=== PATIENT | female | born 1965 | race Caucasian/White ===

== ENCOUNTER → 2020-01-30 08:11 | Outpatient (BNVA) | payer OTHER, SELFPAY | PROVIDERS: PCP Internal Medicine; Referring Provider Internal Medicine; Visit Provider Physician Assistant | DX: Z76.89 Persons encountering health services in other specified circumstances (principal) ==

== ENCOUNTER → 2020-02-17 09:20 | Outpatient (BNVA) | payer OTHER, SELFPAY | PROVIDERS: PCP Internal Medicine; Visit Provider Physician Assistant | DX: Z76.89 Persons encountering health services in other specified circumstances (principal) ==

== ENCOUNTER 2020-02-20 10:06 | Outpatient (REF) | payer OTHER, SELFPAY | END 2020-02-20 10:07 | disposition home or self-care (01) | LOC: HO.LAB 10:06 | PROVIDERS: Visit Provider Internal Medicine | DX: Z20.828 Contact with and (suspected) exposure to other viral communicable diseases (principal) | CPT/HCPCS: C9803; U0003 ==

== ENCOUNTER → 2020-04-19 08:03 | Outpatient (BNVA) | payer OTHER, SELFPAY | PROVIDERS: PCP Internal Medicine; Visit Provider Surgery ==

== ENCOUNTER 2020-04-21 06:59 | Outpatient (REF) | payer OTHER, SELFPAY ==
--- NOTE | 2020-04-21 07:07 | ECG_ITS ---
Test Reason : PRE OP Blood Pressure : / mmHG Vent. Rate : 064 BPM Atrial Rate : 064 BPM P-R Int : 126 ms QRS Dur : 090 ms QT Int : 406 ms P-R-T Axes : 050 083 050 degrees QTc Int : 418 ms Normal sinus rhythm Normal ECG When compared with ECG of 24-APR-2018 08:56, T wave inversion no longer evident in Inferior leads Referred By: Sumeet Og Electronically Signed By:Raymond New
[2020-04-21 07:46] LABS: MANUAL DIFF FLAG NO
[2020-04-21 07:49] LABS: Basophils Absolute Auto 0.1 X10*3/uL (0.0-0.2); Eosinophils Absolute Auto 0.1 X10*3/uL (0.0-0.4); Eosinophils Percent Auto 2.8 % (0-4); Hematocrit 41.1 % (37-47); Hemoglobin 13.4 g/dl (12.0-16.0); Imm Gran Abs Auto 0.01 X10*3/uL (0.00-0.03); Imm Gran Pct Auto 0.2 % (0.0-0.4); Lymphocytes Absolute Auto 2.3 X10*3/uL (1.2-4.9); Mean Corpuscular HGB Conc 32.6 g/dl (31.0-35.0); Mean Corpuscular Hemoglobin 29.4 pg (27.0-33.0); Mean Corpuscular Volume 90.1 fL (80-98); Mean Platelet Volume 10.8 fL (9.4-12.3); Monocytes Absolute Auto 0.4 X10*3/uL (0.1-1.2); Monocytes Percent Auto 7.5 % (2-11); Neutrophils Absolute Auto 2.1 X10*3/uL (2.0-8.3); Neutrophils Percent Auto 41.5 % (45-73); Platelet Count 226 X10*3/uL (160-400); Red Blood Count 4.56 X10*6/uL (4.20-5.50); Red Cell Distribution Width 12.5 % (11.0-16.0)
[2020-04-21 08:15] LABS: Prothrombin Time 12.2 SEC (10.8-13.0)
[2020-04-21 08:17] LABS: Partial Thromboplastin Time 35.4 SEC (24.1-38.0)
== END 2020-04-21 07:00 | disposition home or self-care (01) ==
LOC: HO.LAB 06:59
PROVIDERS: PCP Internal Medicine; Visit Provider Surgery
DX: Z01.818 Encounter for other preprocedural examination (principal); K90.9 Intestinal malabsorption, unspecified
CPT/HCPCS: 36415; 80053; 85025; 85610; 85730; 93005

== ENCOUNTER 2020-04-29 06:17 | Inpatient (IN) | payer OTHER, SELFPAY ==
[2020-04-16 09:39] VITALS: BMI 23.0
--- NOTE | 2020-04-28 09:40 | HO.ANESPROP2 ---
Documented by User: Yuliana Oconnell 04/28/20 09:45 HPI - Anesthesia Eval Consult details Narrative: 54yo F for Panniculectomy s/p gastric sleeve 07/12 *plavix d/t h/o CVA 2008 [facility] Past Medical History Medical History (Updated 04/29/20 @ 07:18 by Sabina Grande) Arthritis CVA (cerebral vascular accident) Elevated cholesterol History of anxiety Lab test negative for COVID-19 virus On anticoagulant therapy Taking a statin medication Thyroid disease Family History Family History Mother History of aneurysm of heart Father No problems noted. Brother No problems noted. Sister History of hypothyroidism Son No problems noted. Son No problems noted. Daughter History of hypothyroidism Surgical History Surgical History History of esophagogastroduodenoscopy (EGD) History of sleeve gastrectomy Hx laparoscopic cholecystectomy Hx of appendectomy Hx of section Hx of section Hx of section Hx of hysterectomy Hx of right knee surgery Hx of tonsillectomy Hx of wisdom tooth extraction Social History Social History Are you a primary day care provider to a significant other at home: No Do you presently have visiting nurse or other home services: No Alcohol intake: never Smoking Status: Never smoker Use of substances other than those prescribed or required for medical reasons: No Have you been hit, kicked, punched, or otherwise hurt by someone within the past year? If so, by whom?: No Advance Directives: No Advance Directives Information Provided: No Recently lost weight without trying: No Meds Allergies Allergy/AdvReac Type Severity Reaction Status Date / Time strawberry [STRAWBERRY] Allergy Intermediate HIVES Verified 04/19/20 10:02 Home Medications Medication Instructions Recorded Confirmed Type clopidogrel 75 mg tablet 75 mg PO DAILY 01/30/20 04/29/20 History levothyroxine 75 mcg tablet 75 mcg PO DAILY 01/30/20 04/29/20 History simvastatin 10 mg tablet 10 mg PO BEDTIME 01/30/20 04/29/20 History cephalexin 500 mg PO BID 04/29/20 04/29/20 History estradiol 1 tab VAGINAL 2XW 04/29/20 04/29/20 History Exam Exam Date and Time: April 28, 2020 0940 Height,Weight and Vital Signs: Height 5 ft 6.5 in Weight 65.771 kg Pertinent Lab Results Pertinent Lab Results: Laboratory Tests 04/21/20 07:45 Blood Type B Negative Antibody Screen NEGATIVE Laboratory Tests 04/21/20 04/21/20 06:45 06:45 WBC 5.0 Hgb 13.4 Hct 41.1 Plt Count 226 PT 12.2 INR 1.0 APTT 35.4 Narrative Narrative: EKG 04/21/20 Normal sinus rhythm Normal ECG When compared with ECG of 24-APR-2018 08:56, T wave inversion no longer evident in Inferior leads Assessment and Plan Assessment Anesthesia Assessment: Chart Reviewed Documented by User: Sabina Grande 04/29/20 07:21 [facility] Past Medical History Medical History (Updated 04/29/20 @ 07:18 by Sabina Grande) Arthritis CVA (cerebral vascular accident) Elevated cholesterol History of anxiety Lab test negative for COVID-19 virus On anticoagulant therapy Taking a statin medication Thyroid disease Family History Family History Mother History of aneurysm of heart Father No problems noted. Brother No problems noted. Sister History of hypothyroidism Son No problems noted. Son No problems noted. Daughter History of hypothyroidism Family history of problems with anesthesia: No Surgical History Surgical History History of esophagogastroduodenoscopy (EGD) History of sleeve gastrectomy Hx laparoscopic cholecystectomy Hx of appendectomy Hx of section Hx of section Hx of section Hx of hysterectomy Hx of right knee surgery Hx of tonsillectomy Hx of wisdom tooth extraction History of Problems with Anesthesia: No Social History Social History Are you a primary day care provider to a significant other at home: No Do you presently have visiting nurse or other home services: No Alcohol intake: never Smoking Status: Never smoker Use of substances other than those prescribed or required for medical reasons: No Have you been hit, kicked, punched, or otherwise hurt by someone within the past year? If so, by whom?: No Advance Directives: No Advance Directives Information Provided: No Recently lost weight without trying: No Meds Allergies Allergy/AdvReac Type Severity Reaction Status Date / Time strawberry [STRAWBERRY] Allergy Intermediate HIVES Verified 04/19/20 10:02 Home Medications Medication Instructions Recorded Confirmed Type clopidogrel 75 mg tablet 75 mg PO DAILY 01/30/20 04/29/20 History levothyroxine 75 mcg tablet 75 mcg PO DAILY 01/30/20 04/29/20 History simvastatin 10 mg tablet 10 mg PO BEDTIME 01/30/20 04/29/20 History cephalexin 500 mg PO BID 04/29/20 04/29/20 History estradiol 1 tab VAGINAL 2XW 04/29/20 04/29/20 History Exam Height,Weight and Vital Signs: Vital Signs Pulse Resp BP Pulse Ox 04/29/20 06:26 82 18 108/61 99 Pertinent Lab Results Pertinent Lab Results: Lab Results 04/21/20 04/29/20 04/29/20 Range/Units 07:45 06:20 06:29 Sodium 141 (135-145) mmol/L Potassium 3.8 (3.3-5.1) mmol/L Chloride 102 (96-108) mmol/L Carbon Dioxide 30 H (22-29) mmol/L Anion Gap 13 (12-20) BUN 14 (9-16) mg/dL Creatinine 0.75 (0.5-1.4) mg/dL Estim Creat Clear Calc 78.4 Estimated GFR > 60 Fasting Glucose 96 (60-99) mg/dL Calcium 9.5 (8.4-10.2) mg/dL COVID-19 (JON) Negative (Negative) COVID-19 Clin Com See Note Blood Type B Negative Antibody Screen NEGATIVE Airway Mallampati Class: II TM Dist: >3cm Neck ROM: Full Loose/Missing/Broken Teeth: No Heart: RRR Lungs: CTAB Assessment and Plan Assessment Anesthesia Assessment: Anesthesia Plan Discussed and Chart Reviewed Final Anesthetic Review NPO: Yes ASA Class: III Final Preanesthetic Review: No Changes in Pt Med Stat, Meds/Allgs Chart Reviewed, Consent Obtained/Reviewed and Anes Risks/Benef Reviewed Patient Risk: Intermediate Procedure Risk: Intermediate Assessment/Block/Sedation in SS: Assess/Block/Sedation-SS Anesthetic Plan Anesthetic Plan: GA Disposition: Standard PACU
--- NOTE | 2020-04-28 22:32 | MHC.SHP ---
Pre-Procedural Eval Section A The patient is an INPATIENT: No The History & Physical has been completed within 30 days and I have reviewed it.: Yes Section B Chief Complaint: panniculitis Details of Present Illness: Panniculitis Relevant Family History (Specify if Yes): No Relevant Social History: None Present Medications: see Short Stay Collaborative assessment Medical History: No relevant PMH History of Previous Operations: Relevant previous surgery/procedure and date(s) (sleeve gastrectomy) Allergies: Allergies Allergy/AdvReac Type Severity Reaction Status Date / Time strawberry [STRAWBERRY] Allergy Intermediate HIVES Verified 04/19/20 10:02 Review of Systems Sugical H&P ROS: Negative: Constitution, Cardiovascular, Respiratory, Neurological, Psychiatric, Hem-Onc, Allergic/Immunologic, Gastrointestinal, Genitourinary, Musculoskeletal, Integumentary, Endocrine and Eyes/Ears/Nose/Throat Exam Surgical H&P Exam: Normal: HEENT, Normal: Heart, Normal: Lungs, Normal: Extremities, Normal: Abdomen, Normal: Skin and Normal: Neurological Plan Diagnosis/Plan: Unchanged I have reviewed the history and physical and performed a pertinent physical examination on my patient. No changes have occurred unless specified.
[2020-04-29] VITALS (11 sets, daily range): BP systolic 92–134; BP diastolic 48–64; PULSE 65–106; RESP 15–18; TEMP 35.8–37; O2SAT 96–100
[2020-04-29 06:44] LABS: COVID-19 Test Negative (Negative)
[2020-04-29 07:04] LABS: Anion Gap 13 (12-20); Blood Urea Nitrogen 14 mg/dL (9-16); Calcium 9.5 mg/dL (8.4-10.2); Carbon Dioxide 30 mmol/L (22-29); Chloride 102 mmol/L (96-108); Creatinine Clr Calc Pharmacy 78.4; Estimated Glomerular Filt Rate > 60; Glucose Fasting 96 mg/dL (60-99); Potassium 3.8 mmol/L (3.3-5.1); Sodium 141 mmol/L (135-145)
--- NOTE | 2020-04-29 11:13 | P.DS_ITS ---
DS: Providers Provider Date of Service: 05/03/20 Date of admission: 04/29/20 06:17 Primary care physician: Nasra Stone MD DS: Medications Discharge Medications Home Medications: Home Medications Medication Instructions Recorded Confirmed clopidogrel 75 mg tablet 75 mg PO DAILY 01/30/20 04/29/20 levothyroxine 75 mcg tablet 75 mcg PO DAILY 01/30/20 04/29/20 simvastatin 10 mg tablet 10 mg PO BEDTIME 01/30/20 04/29/20 cephalexin 500 mg PO BID 04/29/20 04/29/20 estradiol 1 tab VAGINAL 2XW 04/29/20 04/29/20 Previous Rx's Medication Instructions Recorded ondansetron HCl 4 mg tablet 4 mg PO Q6H PRN #30 tab 04/19/20 DS: Summary Time Spent with Patient Time attestation: DISCHARGE SUMMARY ADMITTING DIAGNOSIS: panniculitis, s/p lap sleeve gastrectomy, hx CVA, hyperlipidemia, hypothyroidism, anxiety and arthritis DISCHARGE DIAGNOSIS: The same. PAST SURGICAL HISTORY: Lap sleeve gastrectomy, section x 3, lap jose, open appy, hysterectomy and R knee surgery PROCEDURE: Panniculectomy. HISTORY OF PRESENT ILLNESS: The patient is a 54 year-old woman with a BMI of 23.1 kg/m2 and associated co- morbidities as described previous. The patient had a laparoscopic sleeve gastrectomy 2017 and has lost a total of 103.6 lbs, or 42% of her initial weight and her BMI reduced to 23.1 kg/m2. As a result of the massive weight loss she developed a large abdominal pannus and persistent panniculitis recalcitrant to medical treatment. The patient was electively scheduled for panniculectomy. Risks and complications of the surgery were discussed with the patient in advance, particularly the possibility of , pulmonary embolism, skin necrosis, loss of umbilicus, flap necrosis, wound dehiscence, flap asymmetry, bleeding requiring transfusion. The patient understood all the risks and was in agreement with the surgical plan. On postoperative day #1 the patient was started on Phase 3 bariatric diet. The Pham was discontinued. She was allowed to ambulate and she had no dizziness. During the first day, the patient did fairly well, having some incisional pain, but able to ambulate adequately and to tolerate liquids well. All dressings were taken down and the all incisions were inspected. There was no evidence of infection or bleeding or significant discharge. All flaps and umbilicus were viable and there was no dehiscence. DAY drains had minimal output with s erosanguinous fluid. Since the patient is doing well, we decided that the patient was ready to be discharged. The patient was given instructions to follow-up with me next week and to call my office for any fever over 101, persistent abdominal pain, nausea, vomiting, and symptoms of DVT such as calf tenderness, or leg swelling, or pulmonary embolism such as chest pain or shortness of breath. The patient was also instructed to drink 40-60 ounces of liquids per day using the 1-ounce cups and start on 3 Pure protein shakes per day. The patient was given prescription for Tylenol for pain, Zofran prn for nausea and a 10-day course of Keflex twice a day. The patient was encouraged to ambulate and use the incentive spirometer. However it was strongly recommended to do so with assistance and avoid any abdominal straining for at least one month. The patient was allowed only to do sponge baths, and encouraged to use the recliner at home and not the bed. All of these instructions were given to the patient personally. All questions were answered and the patient understood all instructions. The instructions were given to the patient in print as well. Total time spent providing and/or coordinating discharge services:20 minutes Discharge coordination time: Greater than 30 minutes Physical Exam Vital Signs: Vital Signs: Last Vital Signs Temp 97.1 F 04/29/20 11:05 Pulse 105 H 04/29/20 11:05 Resp 15 04/29/20 11:05 BP 134/63 04/29/20 11:05 Pulse Ox 100 04/29/20 11:05 Body Mass Index 23.0 DS: Data Data Completed and Pending Pending studies at discharge: Pending at discharge 04/29/20 09:49 Surgical [PTH] Routine Labs on day of discharge: Laboratory Tests 04/21/20 04/29/20 04/29/20 07:45 06:20 06:29 Sodium 141 Potassium 3.8 Chloride 102 Carbon Dioxide 30 H Anion Gap 13 BUN 14 Creatinine 0.75 Estim Creat Clear Calc 78.4 Estimated GFR > 60 Fasting Glucose 96 Calcium 9.5 COVID-19 (JON) Negative COVID-19 Clin Com See Note Blood Type B Negative Antibody Screen NEGATIVE Discharge Plan Discharge Anticipated Discharge Date/Time: 04/30/20 00:10 Patient Disposition: Home Health Service Referrals: [facility] [Other] (PATIENT IS DISCHARGED HOME WITH [facility] FOR INCISION AND DRAIN MANAGEMENT) Nasra Stone MD [Primary Care Provider] - Discharge Medications: Continued cephalexin 500 mg Capsule 500 mg PO BID RF: 0 ondansetron HCl [Zofran] 4 mg tablet 4 mg PO Q6H PRN (Reason: nausea and vomiting) Qty: 30 RF: 0 simvastatin 10 mg tablet 10 mg PO BEDTIME RF: 0 levothyroxine 75 mcg tablet 75 mcg PO DAILY RF: 0 Held estradiol 10 mcg tablet 1 tab vaginal 2XW RF: 0 Hold Instructions: Discuss with Dr Anna when you can restart clopidogrel 75 mg tablet 75 mg PO DAILY RF: 0 Hold Instructions: Do not restart until recommended by Dr Og Discharge Orders: Discharge Order (Routine); Ordered 04/30/20 Ordered By: Sumeet Og Diet: other Activity on Discharge: Rest with bed elevated Stand Alone Forms: Patient Portal Discharge page Activity Restrictions/Additional Instructions: 1) Record drain output for all 24 hour periods on drain output sheet. Bring sheet at the next office visit 2) Start Keflex antibiotic 3) No showers. Only sponge baths 4) Avoid any tension on the abdomen and always have help getting up. Use your arms to push off from chair/bed. 5) Take 1 tab of Colace and one tablespoon of Metamucil daily 6) Diet: 3 protein shakes, or 2 shakes and one meal (2oz meat and 2oz salad) 7) Wear binder at all times 8) Change dressings daily and send pictures to Dr. Og. Replace loose steri-strips and xeroform gauze along the incisions and umbilicus. 9) Supplies needed: ABD pads, 4x4 dressings, xeroform gauze, 1/2'' steri-strips, paper tape. You will need to use several of the above supplies on a daily basis. Care Plan Goals: resoltuion of panniculitis Health Concerns: panniculitis Plan of Treatment: see discharge instructions Discharge Date/Time: 04/30/20 14:20
[2020-04-29] MEDS: Lactated Ringers 1,000 ML 125 ML IVCONT ×2 (12:31→20:23)
[2020-04-29] MEDS: ondansetron HCL 4 MG/2 ML VIAL IVPUSH ×2 (14:07→20:23)
[2020-04-29] MEDS: ceFAZolin Sodium/Dextrose,Iso 2 GM/50 ML PIGGYBACK IV (14:10)
[2020-04-29] MEDS: 0.9 % Sodium Chloride Flush 3 ML SYRINGE IVFLUSH (20:23)
[2020-04-29] MEDS: 0.9 % Sodium Chloride 500 ML 999 ML IV (20:24)
--- NOTE | 2020-04-29 20:58 | P.PNGS_ITS ---
Subjective Subjective Date of Service: 04/30/20 Interval history: Patient has mild incisional pain. Was able to use the incentive spirometer. Dressing were changed.There was no evidence of ischemia in the flaps or umbilicus. DAY with serosanguinous fluid. Physical Exam Vital Signs: Vital Signs: Last Vital Signs Temp 97 F 04/29/20 19:06 Pulse 65 04/29/20 19:06 Resp 18 04/29/20 19:06 BP 92/48 L 04/29/20 19:46 Pulse Ox 97 04/29/20 19:06 Body Mass Index 23.0 GI: Inspection: Yes normal to inspection and Yes incision (clean, dry, intact. No ischemia) Extrem: Right lower extremity: normal to inspection (no calf tenderness) Left lower extremity: normal to inspection (no calf tenderness) Progress Note: A&P Assessment and plan (1) Panniculitis: Status: Acute (2) Intestinal malabsorption: Status: Acute (3) S/P panniculectomy: Status: Acute Assessment and Plan: 54 year old female was admitted 04/29/2020 with panniculitis. Problem 1: s/p panniculectomy with umbilical transposition and bilateral subc utaneous fat flaps Status: Doing well Plan: Check am labs, If OK, will continue phase 1 bariatric diet and discharge later today. D/C Pham and ambulate. Fall Risk Details Current Medications: Current Medications Generic Name Dose Route Start Last Admin Trade Name Freq PRN Reason Stop Dose Admin Hydromorphone HCl 0.25 mg 04/29/20 12:07 Hydromorphone Hcl 0.5 Mg/0.5 Ml Syringe IVPUSH Q4H PRN Pain, Moderate (Pain Scale 4-6 Lactated Ringer's 1,000 mls @ 125 mls/hr 04/29/20 12:07 04/29/20 20:23 Lr IVCONT 125 mls/hr .Q8H ANNAMARIE Administration Acetaminophen 1,000 mg in 100 mls @ 16.7 mls/hr 04/29/20 12:07 04/29/20 18:13 Ofirmev IV 16.7 mls/hr .Q6H ANNAMARIE Administration Levothyroxine Sodium 75 mcg 04/30/20 09:00 Levothyroxine Sodium 75 Mcg Tablet PO DAILY ANNAMARIE Ondansetron HCl 4 mg 04/29/20 12:07 04/29/20 20:23 Ondansetron Hcl 4 Mg/2 Ml Vial IVPUSH 4 mg Q8H ANNAMARIE Administration Sodium Chloride 3 ml 04/29/20 16:00 04/29/20 20:23 0.9 % Sodium Chloride Flush 3 Ml Syringe IVFLUSH 3 ml QSHIFT ANNAMARIE Administration Time Spent With Patient Time: Total time spent is greater than 50% in coordination of care (as documented) at patient's floor/unit and/or counseling patient: Time with patient: less than 15 minutes
--- NOTE | 2020-04-29 21:02 | P.BOP_ITS ---
Brief Operative Note Date of Service: 04/29/20 Pre-op diagnosis: Panniculitis Post-op diagnosis: same Procedure: PROCEDURE: Panniculectomy with umbilical transposition and bilateral subcutaneous flaps INDICATION: This a 54 year old female who underwent laparoscopic sleeve gastrectomy on 06/29/2018. She had an excellent result achieving a BMI of 23.3 kg/m2 with a total weight loss of 103.6lbs, or 42.5% of her TBWL. As a result, she has developed panniculitis which has not resolved despite continuous use of clotrimazole ointment. On exam she has extreme skin laxity due to massive weight loss and age with the abdominal pannus completely hiding the genitalia. Panniculectomy was recommended. We discussed the two options for the panniculectomy of using a combined vertical and horizontal incisions or just a horizontal (bikini) incision. It was my recommendation to do only horizontal incision based on her body habitus and skin laxity. The patient agreed with this. Risks and complications were discussed with the patient including bleedin g, infection, umbilical loss, flap necrosis, asymmetry, dehiscence, seroma, VTE. The patient understood the risks and was in agreement to proceed with surgery. PROCEDURE: The incisions were appropriately marked at the preop area with the patient standing and laying down. After induction of general anesthesia a Pham catheter and pneumatic compression devices were placed. The patient was prepped and draped in the usual sterile manner and the incisions were marked again and confirmed. The skin was infiltrated with lidocaine and epinephrine. The #10 blade scalpel was used for the large incisions and the #15 blade scalpel for the umbilicus. Cautery was used to divide the subcutaneous tissues until the fascia was identified. Then I used the Thunderbeat (Olympus) to separate the pannus from t he fascia. The inferior incision was made initially and I mobilized the flap for a several centimeters cephalad to the umbilicus. The umbilicus was incised circumferentially and detached from the surrounding tissues all the way to the fascia while its stalk was preserved. With the patient in reflex position I confirmed that the skin flaps were appropriate and would allow for the tissues to come together with reasonable tension. At that point a horizontal incision was made 4 cm above the umbilicus. #10 blade was used for the skin, cautery for the dermis and the Thunderbeat for the remaining tissues. A bilateral subcutaneous fat flap was raised from the upper incision in order to fill the space under the skin and support the closure of the two skin flaps. In addition the inferior flap was mobilized caudally for a few centimeters to create a space for the omental flap as well as relieve tension from the closure. A circumferential incision was made at the area where the umbilicus would be re- implanted. The umbilicus was appropriately oriented and was delivered through the defect and was secured in place with a Raymond. No bleeding was noted anywhere. One DAY drain was placed from the left corner of the horizontal incision across the wound and was secured in place with a silk suture. The subcutaneous fat flap was secured under the inferior flap with several interrupted 3.0 Monocryl sutures. The two flaps were brought together and were attached at the midline of the horizontal incision with a #3.0 Monocryl suture. At that point the umbilicus was properly oriented and was re-approximated to the skin with 8 interrupted 3.0 Monocryl sutures. In a similar fashion the skin flaps were re-approximated with multiple 3.0 Monocryl sutures. The skin was closed in all incisions and umbilicus with 4.0 Monocryl sutures. Steri-strips, xeroform gauzes and gauzes were used to cover the incisions. An abdominal binder was also placed. The was awaken and was transferred to the recover room in a stable condition. I was present and performed the entire procedure. Ms. Lentz was the waiter/waitress first class. Fernando Og MD, PhD, FACS Surgeon: Sumeet Og MD Surgeon: Sumeet Og MD Anesthesia: GETA and local Design Painter: Sol Lentz Estimated blood loss (mL): 10 IV fluids (mL): 1,700 Urine output (mL): 150 Pathology: other (abdominal pannus) Condition: stable
--- NOTE | 2020-04-30 00:06 | PC.NURSE ---
pt's bp at 1945 was 92/48. [employer] message sent to VENUS Marcum. 500 cc NS bolus ordered and administered. pt's bp at 2300 was 95/48. spoke with Dr. Og around 2200 and reported pt's low bp's and he said that this was normal for her. [employer] message sent to Sol Lentz to report 2300 bp and told her that I spoke with Dr. Og about her bps.
[2020-04-30 03:13] LABS: MANUAL DIFF FLAG NO
[2020-04-30 03:19] LABS: Basophils Percent Auto 0.3 % (0-2); Eosinophils Percent Auto 0.2 % (0-4); Hematocrit 32.7 % (37-47); Hemoglobin 10.7 g/dl (12.0-16.0); Imm Gran Abs Auto 0.03 X10*3/uL (0.00-0.03); Imm Gran Pct Auto 0.3 % (0.0-0.4); Lymphocytes Absolute Auto 2.2 X10*3/uL (1.2-4.9); Mean Corpuscular HGB Conc 32.7 g/dl (31.0-35.0); Mean Corpuscular Hemoglobin 29.5 pg (27.0-33.0); Mean Corpuscular Volume 90.1 fL (80-98); Mean Platelet Volume 10.9 fL (9.4-12.3); Monocytes Percent Auto 9.8 % (2-11); Neutrophils Absolute Auto 6.8 X10*3/uL (2.0-8.3); Neutrophils Percent Auto 67.4 % (45-73); Platelet Count 176 X10*3/uL (160-400); Red Blood Count 3.63 X10*6/uL (4.20-5.50); Red Cell Distribution Width 12.7 % (11.0-16.0); White Blood Count 10.1 X10*3/uL (4.8-10.8)
[2020-04-30 03:48] LABS: Anion Gap 10 (12-20); Blood Urea Nitrogen 9 mg/dL (9-16); Calcium 8.3 mg/dL (8.4-10.2); Carbon Dioxide 29 mmol/L (22-29); Chloride 105 mmol/L (96-108); Creatinine Clr Calc Pharmacy 96.4; Estimated Glomerular Filt Rate > 60; Glucose Random 95 mg/dL (60-115); Potassium 4.1 mmol/L (3.3-5.1); Sodium 140 mmol/L (135-145)
[2020-04-30 04:00] VITALS: BP 90/56; PULSE 56; RESP 16; TEMP 36.1; O2SAT 99
[2020-04-30] MEDS: Lactated Ringers 1,000 ML 125 ML IVCONT (04:36)
[2020-04-30] MEDS: ondansetron HCL 4 MG/2 ML VIAL IVPUSH (04:37)
--- NOTE | 2020-04-30 04:44 | PC.NURSE ---
pt's bp at 0400 was 90/56 manually, all other vitals stable. [employer] message sent to VENUS Marcum. Sol aware, no new orders.
[2020-04-30 08:00] VITALS: BP 97/52; PULSE 62; RESP 16; TEMP 36.2; O2SAT 99
--- NOTE | 2020-04-30 09:03 | MHC.CM.PN ---
PATIENT LIVES WITH HER SPOUSE. SHE IS FULLY INDEPENDENT AND USES NO DME OR SERVICES. SHE IS AWARE OF THE NEED FOR [facility], AND [facility]OSES [facility] REFERRAL PLACED. IF [place] IS UNABLE TO OFFER, SHE CHOOSES [facility] REFERR[facility]. PATIENT IS DISCHARGED HOME TODAY AND SP[facility] WILL TRANSPORT.
--- NOTE | 2020-04-30 09:13 | MHC.CM.PN ---
[facility] AT THIS TIME. REFERRAL PLACED TO [facility].
--- NOTE | 2020-04-30 09:19 | HO.POSTANES ---
Post Anesthesia Evaluation Post Anesthesia Evaluation Vital Signs: Vital Signs Temp Pulse Resp BP Pulse Ox 04/30/20 08:00 97.1 F 62 16 97/52 L 99 04/30/20 04:00 96.9 F 56 16 90/56 L 99 04/29/20 22:56 96.4 F L 68 16 95/48 L 97 Anesthesia: General Endotracheal-GETA Mental Status: Awake Pain Control: Satisfactory Nausea/Vomiting: None Hydration: Adequate Anesthesia-Related Issues: No Anes. Related Issues
[2020-04-30 09:51] VITALS: O2SAT 98
--- NOTE | 2020-04-30 10:41 | MHC.CM.PN ---
[facility] IS OFFERING SERVICES FOR I&D MANAGEMENT.
[2020-04-30 10:58] VITALS: BP 101/55; PULSE 59; RESP 18; TEMP 37.1; O2SAT 99
--- NOTE | 2020-04-30 11:44 | PC.NURSE ---
PT C[place] REMOVED AT 0815. PT HAS VOIDED TWICE IN BR WITHOUT DIFFICULTY. DENIES PAIN, DENIES DIZZINESS WHEN STANDNG. DRESSING TO LOWER ABDOMEN D/I. AMBULATED IN [place]. TOLERATING PHASE 3 DIET AT THIS TIME
== END 2020-04-30 14:20 | disposition home health service (06) | DRG 571 ==
LOC: HO.SSSA 11:12 → HO.S3 11:48
PROVIDERS: Nurse Practitioner; Physician Assistant; Admitting Provider Surgery; PCP Internal Medicine; Visit Provider Surgery
PROC: 0JB80ZZ Excision of Abdomen Subcutaneous Tissue and Fascia, Open Approach (ICD-10-PCS; CPT 15830; principal; 2020-04-29 07:30)
DX: M79.3 Panniculitis, unspecified (principal); K90.9 Intestinal malabsorption, unspecified; Z20.822 Contact with and (suspected) exposure to COVID-19; Z79.02 Long term (current) use of antithrombotics/antiplatelets; Z79.890 Hormone replacement therapy; Z79.899 Other long term (current) drug therapy
CPT/HCPCS: 36415; 80048; 85025; 86850; 86900; 86901; 87635; 88304; 99024; C1758; J0131; J0690; J1100; J1170; J1885; J2250; J2405; J3010

== ENCOUNTER → 2020-05-07 08:38 | Outpatient (BNVA) | payer OTHER, SELFPAY | PROVIDERS: PCP Internal Medicine; Visit Provider Physician Assistant ==

== ENCOUNTER → 2020-07-21 08:04 | Outpatient (BNVA) | payer OTHER, SELFPAY | PROVIDERS: PCP Internal Medicine; Referring Provider Internal Medicine; Visit Provider Physician Assistant ==

== ENCOUNTER 2020-07-27 11:03 | Outpatient (REF) | payer OTHER, SELFPAY ==
[2020-07-27 11:53] LABS: MANUAL DIFF FLAG NO
[2020-07-27 12:03] LABS: Basophils Absolute Auto 0.1 X10*3/uL (0.0-0.2); Basophils Percent Auto 0.9 % (0-2); Eosinophils Absolute Auto 0.1 X10*3/uL (0.0-0.4); Eosinophils Percent Auto 2.1 % (0-4); Hematocrit 40.6 % (37-47); Hemoglobin 12.9 g/dl (12.0-16.0); Imm Gran Abs Auto 0.01 X10*3/uL (0.00-0.03); Imm Gran Pct Auto 0.2 % (0.0-0.4); Lymphocytes Absolute Auto 2.6 X10*3/uL (1.2-4.9); Lymphocytes Percent Auto 43.9 % (20-40); Mean Corpuscular HGB Conc 31.8 g/dl (31.0-35.0); Mean Corpuscular Hemoglobin 28.9 pg (27.0-33.0); Mean Corpuscular Volume 90.8 fL (80-98); Mean Platelet Volume 10.5 fL (9.4-12.3); Monocytes Absolute Auto 0.4 X10*3/uL (0.1-1.2); Neutrophils Absolute Auto 2.7 X10*3/uL (2.0-8.3); Neutrophils Percent Auto 46.9 % (45-73); Platelet Count 263 X10*3/uL (160-400); Red Blood Count 4.47 X10*6/uL (4.20-5.50); Red Cell Distribution Width 12.7 % (11.0-16.0); White Blood Count 5.8 X10*3/uL (4.8-10.8)
[2020-07-27 12:36] LABS: Vitamin D 25-OH Total 53.8 ng/mL (>30)
[2020-07-27 12:39] LABS: Alanine Aminotransferase 32 U/L (0-31); Albumin Level 4.2 g/dL (3.5-5.0); Alkaline Phosphatase 114 U/L (39-117); Anion Gap 11 (12-20); Aspartate Amino Transferase 26 U/L (5-31); Blood Urea Nitrogen 16 mg/dL (9-16); Calcium 9.5 mg/dL (8.4-10.2); Carbon Dioxide 30 mmol/L (22-29); Chloride 104 mmol/L (96-108); Estimated Glomerular Filt Rate > 60; Glucose Random 79 mg/dL (60-115); Potassium 4.3 mmol/L (3.3-5.1); Sodium 141 mmol/L (135-145); Total Protein 6.7 g/dL (6.5-8.0)
[2020-07-27 12:57] LABS: Folate 18.9 ng/mL (> or = 4.0); Vitamin B12 608 pg/mL (200-900)
[2020-07-28 16:41] LABS: Calcium (PTHI) 9.5 mg/dL (8.6-10.4); PTHI 29 pg/mL (14-64)
[2020-08-01 09:26] LABS: Vitamin A 44 mcg/dL (38-98)
[2020-08-01 10:41] LABS: Vitamin B1 30 nmol/L (8-30)
== END 2020-07-27 11:04 | disposition home or self-care (01) ==
LOC: HO.LAB 11:03
PROVIDERS: Surgery; PCP Internal Medicine; Visit Provider Physician Assistant
DX: K90.9 Intestinal malabsorption, unspecified (principal); Z90.3 Acquired absence of stomach [part of]
CPT/HCPCS: 36415; 80053; 82306; 82607; 82746; 83970; 84425; 84590; 85025

== ENCOUNTER → 2021-01-14 14:50 | Outpatient (BNVA) | payer OTHER, SELFPAY | PROVIDERS: PCP Internal Medicine; Visit Provider Physician Assistant Surgical | DX: K90.9 Intestinal malabsorption, unspecified (principal); Z90.3 Acquired absence of stomach [part of] ==

== ENCOUNTER → 2021-02-21 08:14 | Outpatient (BNVA) | payer OTHER, SELFPAY | PROVIDERS: PCP Internal Medicine; Visit Provider Surgery ==

== ENCOUNTER 2021-02-23 07:05 | Outpatient (REF) | payer OTHER, SELFPAY ==
[2021-02-23 07:20] LABS: MANUAL DIFF FLAG NO
[2021-02-23 07:59] LABS: Basophils Percent Auto 0.5 % (0-2); Eosinophils Absolute Auto 0.1 X10*3/uL (0.0-0.4); Eosinophils Percent Auto 2.2 % (0-4); Hematocrit 42.8 % (37.0-47.0); Hemoglobin 13.9 g/dl (12.0-16.0); Imm Gran Abs Auto 0.01 X10*3/uL (0.00-0.03); Imm Gran Pct Auto 0.2 % (0.0-0.4); Lymphocytes Absolute Auto 2.4 X10*3/uL (1.2-4.9); Lymphocytes Percent Auto 43.3 % (20-40); Mean Corpuscular HGB Conc 32.5 g/dl (31.0-35.0); Mean Corpuscular Hemoglobin 29.3 pg (27.0-33.0); Mean Corpuscular Volume 90.1 fL (80.0-98.0); Mean Platelet Volume 10.6 fL (9.4-12.3); Monocytes Absolute Auto 0.4 X10*3/uL (0.1-1.2); Neutrophils Absolute Auto 2.5 x10*3/uL (2.0-8.3); Neutrophils Percent Auto 45.8 % (45-73); Platelet Count 249 X10*3/uL (160-400); Red Blood Count 4.75 X10*6/uL (4.20-5.50); White Blood Count 5.5 X10*3/uL (4.8-10.8)
[2021-02-23 08:06] LABS: Prothrombin Time 11.5 SEC (9.9-13.0)
[2021-02-23 08:09] LABS: Partial Thromboplastin Time 33.1 SEC (24.1-38.0)
[2021-02-23 08:21] LABS: Alanine Aminotransferase 19 U/L (0-31); Albumin Level 4.3 g/dL (3.5-5.0); Alkaline Phosphatase 88 U/L (39-117); Anion Gap 10 (12-20); Aspartate Amino Transferase 21 U/L (5-31); Bilirubin Total 1.4 mg/dL (0.0-1.0); Blood Urea Nitrogen 16 mg/dL (9-16); Carbon Dioxide 32 mmol/L (22-29); Chloride 104 mmol/L (96-108); Estimated Glomerular Filt Rate > 60; Glucose Random 93 mg/dL (60-115); Potassium 4.3 mmol/L (3.3-5.1); Sodium 142 mmol/L (135-145)
[2021-02-23 08:41] LABS: TSH reflex Free T4 3.27 uIU/mL (0.32-4.0)
== END 2021-02-23 07:06 | disposition home or self-care (01) ==
LOC: HO.LAB 07:05
PROVIDERS: PCP Internal Medicine; Visit Provider Surgery
DX: K90.9 Intestinal malabsorption, unspecified (principal)
CPT/HCPCS: 36415; 80053; 84443; 85025; 85610; 85730

== ENCOUNTER 2021-03-01 06:00 | Day surgery (SDC) | payer OTHER, SELFPAY ==
[2021-02-14 08:40] VITALS: BMI 26.9
--- NOTE | 2021-02-26 18:41 | P.HPSUR_ITS ---
Pre-Procedural Eval Section A Date of Service: 02/26/21 The patient is an INPATIENT: No The History & Physical has been completed within 30 days and I have reviewed it.: Yes Section B Chief Complaint: Excessive and redundant skin and subq tissue Relevant Family History (Specify if Yes): No Relevant Social History: None Present Medications: None Medical History: No relevant PMH History of Previous Operations: Relevant previous surgery/procedure and date(s) (sleeve gastrectomy) Allergies: Allergies Allergy/AdvReac Type Severity Reaction Status Date / Time strawberry [STRAWBERRY] Allergy Intermediate HIVES Verified 02/21/21 12:06 Review of Systems Sugical H&P ROS: Negative: Constitution, Cardiovascular, Respiratory, Neurological, Psychiatric, Hem-Onc, Allergic/Immunologic, Gastrointestinal, Genitourinary, Musculoskeletal, Integumentary, Endocrine and Eyes/Ears/Nose/Throat Exam Surgical H&P Exam: Normal: HEENT, Normal: Heart, Normal: Lungs, Normal: Extrem ities, Normal: Abdomen, Normal: Skin and Normal: Neurological Plan Diagnosis/Plan: Unchanged I have reviewed the history and physical and performed a pertinent physical examination on my patient. No changes have occurred unless specified.
--- NOTE | 2021-02-28 11:32 | HO.ANESPROP2 ---
Documented by User: Yuliana Oconnell NP 02/28/21 11:36 HPI - Anesthesia Eval Consult details Narrative: 55yo F for Bilateral Brachioplasty and Thighplasty Plavix for h/o CVA 2008 - on hold s/p panniculectomy 04/[address] [facility] Active Problems Active Problems: All Active Problems (Updated 02/14/21 @ 08:38 by Cristy Wong RN) Panniculitis (Acute) Nausea (Acute) Preprocedural examination (Acute) Intestinal malabsorption (Acute) S/P panniculectomy (Acute) Anemia (Acute) Skin laxity (Acute) Overweight (BMI 25.0-29.9) (Acute) History of sleeve gastrectomy (Acute) Past Medical History Medical History (Updated 03/01/21 @ 08:58 by Sabina Grande MD) Arthritis COVID-19 vaccine series completed CVA (cerebral vascular accident) Elevated cholesterol History of anxiety Lab test negative for COVID-19 virus On anticoagulant therapy Taking a statin medication Thyroid disease Family History Family History Mother History of aneurysm of heart Father No problems noted. Brother No problems noted. Sister History of hypothyroidism Son No problems noted. Son No problems noted. Daughter History of hypothyroidism Family history of problems with anesthesia: No Surgical History Surgical History History of esophagogastroduodenoscopy (EGD) History of sleeve gastrectomy Hx laparoscopic cholecystectomy Hx of appendectomy Hx of section Hx of section Hx of section Hx of hysterectomy Hx of right knee surgery Hx of tonsillectomy Hx of wisdom tooth extraction S/P panniculectomy History of Problems with Anesthesia: No Social History Social History Are you a primary care transition coordinator to a significant other at home: No Do you presently have visiting nurse or other home services: No Alcohol intake: never Patient Tobacco Use Status: Never used Tobacco Use of substances other than those prescribed or required for medical reasons: No Have you been hit, kicked, punched, or otherwise hurt by someone within the past year? If so, by whom?: No Are you DNR?: No Advance Directives: No Advance Directives Information Provided: Yes (prior to last surgery) Advance Directives on File: No Recently lost weight without trying: No Eating poorly because of decreased appetite: No Nutrition Risks: No Nutritional Risk Patient : No service: No Meds Allergies Allergy/AdvReac Type Severity Reaction Status Date / Time strawberry [STRAWBERRY] Allergy Intermediate HIVES Verified 03/01/21 06:14 Home Medications Medication Instructions Recorded Confirmed Last Taken Type clopidogrel 75 mg tablet 75 mg PO DAILY 01/30/20 03/01/21 02/21/21 History levothyroxine 75 mcg tablet 75 mcg PO DAILY 01/30/20 03/01/21 03/01/21 05:10 History simvastatin 10 mg tablet 10 mg PO BEDTIME 01/30/20 02/21/21 04/28/20 History estradiol 10 mcg vaginal tablet 1 tab VAGINAL 2XW 04/29/20 02/21/21 Unknown History Exam Exam Date and Time: February 28, 2021 1132 Height,Weight and Vital Signs: Height 5 ft 6.5 in Weight 76.657 kg Pertinent Lab Results Pertinent Lab Results: Laboratory Tests 02/23/21 07:15 Blood Type B Negative Antibody Screen NEGATIVE Laboratory Tests 02/23/21 02/23/21 07:18 07:18 WBC 5.5 Hgb 13.9 Hct 42.8 Plt Count 249 Sodium 142 Potassium 4.3 Chloride 104 Carbon Dioxide 32 H BUN 16 Creatinine 0.75 Narrative Narrative: EKG 03/2020 Vent. Rate : 064 BPM ? ? Atrial Rate : 064 BPM ?? P-R Int : 126 ms? QRS Dur : 090 ms ? ? QT Int : 406 ms ? ? ? P-R-T Axes : 050 083 050 degrees ?? QTc Int : 418 ms ? Normal sinus rhythm Normal ECG When compared with ECG of 24-APR-2018 08:56, T wave inversion no longer evident in Inferior leads Assessment and Plan Final Anesthetic Review Family History of Problems with Anesthesia: No History of Problems with Anesthesia: No Documented by User: Sabina Grande MD 03/01/21 08:59 [facility] Active Problems Active Problems: All Active Problems (Updated 02/14/21 @ 08:38 by Cristy Wong, JAMMIE) Panniculitis (Acute) Nausea (Acute) Preprocedural examination (Acute) Intestinal malabsorption (Acute) S/P panniculectomy (Acute) Anemia (Acute) Skin laxity (Acute) Overweight (BMI 25.0-29.9) (Acute) History of sleeve gastrectomy (Acute) Last dose of plavix 12/22/20 Past Medical History Medical History (Updated 03/01/21 @ 08:58 by Sabina Grande MD) Arthritis COVID-19 vaccine series completed CVA (cerebral vascular accident) Elevated cholesterol History of anxiety Lab test negative for COVID-19 virus On anticoagulant therapy Taking a statin medication Thyroid disease Family History Family History Mother History of aneurysm of heart Father No problems noted. Brother No problems noted. Sister History of hypothyroidism Son No problems noted. Son No problems noted. Daughter History of hypothyroidism Surgical History Surgical History History of esophagogastroduodenoscopy (EGD) History of sleeve gastrectomy Hx laparoscopic cholecystectomy Hx of appendectomy Hx of section Hx of section Hx of section Hx of hysterectomy Hx of right knee surgery Hx of tonsillectomy Hx of wisdom tooth extraction S/P panniculectomy Social History Social History Are you a primary care transition coordinator to a significant other at home: No Do you presently have visiting nurse or other home services: No Alcohol intake: never Patient Tobacco Use Status: Never used Tobacco Use of substances other than those prescribed or required for medical reasons: No Have you been hit, kicked, punched, or otherwise hurt by someone within the past year? If so, by whom?: No Are you DNR?: No Advance Directives: No Advance Directives Information Provided: Yes (prior to last surgery) Advance Directives on File: No Recently lost weight without trying: No Eating poorly because of decreased appetite: No Nutrition Risks: No Nutritional Risk Patient : No service: No Meds Allergies Allergy/AdvReac Type Severity Reaction Status Date / Time strawberry [STRAWBERRY] Allergy Intermediate HIVES Verified 03/01/21 06:14 Home Medications Medication Instructions Recorded Confirmed Last Taken Type clopidogrel 75 mg tablet 75 mg PO DAILY 01/30/20 03/01/21 02/21/21 History levothyroxine 75 mcg tablet 75 mcg PO DAILY 01/30/20 03/01/21 03/01/21 05:10 History simvastatin 10 mg tablet 10 mg PO BEDTIME 01/30/20 02/21/21 04/28/20 History estradiol 10 mcg vaginal tablet 1 tab VAGINAL 2XW 04/29/20 02/21/21 Unknown History Exam Height,Weight and Vital Signs: Height 5 ft 6.5 in Weight 76.657 kg Vital Signs Temp Pulse Resp BP Pulse Ox 03/01/21 06:22 97.1 F 66 16 115/61 99 Pertinent Lab Results Pertinent Lab Results: Laboratory Tests 02/23/21 07:15 Blood Type B Negative Antibody Screen NEGATIVE Laboratory Tests 02/23/21 02/23/21 07:18 07:18 WBC 5.5 Hgb 13.9 Hct 42.8 Plt Count 249 Sodium 142 Potassium 4.3 Chloride 104 Carbon Dioxide 32 H BUN 16 Creatinine 0.75 Laboratory Results - last 24 hr 03/01/21 06:10 COVID-19 (JON) Negative COVID-19 Clin Com See Note Airway Mallampati Class: II TM Dist: >3cm Neck ROM: Full Loose/Missing/Broken Teeth: No Heart: RRR Lungs: CTAB Assessment and Plan Assessment Anesthesia Assessment: Anesthesia Plan Discussed and Chart Reviewed Final Anesthetic Review NPO: Yes ASA Class: III Final Preanesthetic Review: No Changes in Pt Med Stat, Meds/Allgs Chart Reviewed, Consent Obtained/Reviewed and Anes Risks/Benef Reviewed Patient Risk: Intermediate Procedure Risk: Intermediate Assessment/Block/Sedation in SS: Assess/Block/Sedation-SS Anesthetic Plan Anesthetic Plan: GA Disposition: Standard PACU and Inp. Admit - Standard Bed
[2021-03-01] VITALS (9 sets, daily range): BP systolic 115–141; BP diastolic 61–78; PULSE 66–85; RESP 12–18; TEMP 35.9–36.2; O2SAT 99–100
[2021-03-01] MEDS: Lactated Ringers 1,000 ML 100 ML IVCONT ×2 (06:33→17:12)
[2021-03-01 06:52] LABS: COVID-19 Test Negative (Negative); IDNOW Serial# 9DD0AD1C
--- NOTE | 2021-03-01 07:51 | P.BOP_ITS ---
Brief Operative Note Date of Service: 03/01/21 Pre-op diagnosis: Excess skin upper arms and thighs Post-op diagnosis: same Procedure: PROCEDURE: Bilateral brachioplasty and thighplasty INDICATION: This a 55 year old female who underwent laparoscopic sleeve gastrectomy on 07/09/2018. She had an excellent result achieving a BMI of 25.3 kg/m2 with a total weight loss of 91lbs, or 36.9% of her TBWL. As a result, she has developed skin irritation and intetrigo in both upper arms and medial thighs. On exam she has extreme skin laxity due to massive weight loss and age with the upper arms 4.5 cm below the level of the triceps and friction between the?inner thighs. Bilateral brachioplasty and thighplasty was recommended.?Risks and complications were discussed with the patient including bleeding, infection, flap necrosis, asymmetry, dehiscence, seroma, VTE. The patient understood the risks and was in agreement to proceed with surgery. PROCEDURE: The incisions were appropriately marked at the preop area with the patient standing and laying down. After induction of general anesthesia a Pham catheter and pneumatic compression devices were placed. The patient was prepped and draped in the usual sterile manner and the incisions were marked again and confirmed. In similar fashion both upper arms and thighs were also marked when the patient was standing. The upper arms were performed first. The skin was infiltrated with lidocaine and epinephrine. Skin was excised with the #15 blade. The anterior incision was made first. I did not commit to the posterior incision until dissection was completed and I could assess the appropriate location for the posterior incision to prevent excessive tension. Cautery and Thunderbeat was used to separate the skin from subcutaneous tissues. Careful attention was paid to make sure that the plain of excision was superficial as close to the skin as possible and superior to the fascia. The right upper arm skin was 25 cm x 5 cm and the left 26 cm x 5.5 cm. Skin was closed in two layers using interrupted 3.0 Monocryl sutures for the dermis and 4.0 subcuticular Monocryl suture for the skin. In a similar manner the thigh incisions were appropriately marked. The legs were flexed at the knees and abducted at the hip level.?The anterior incision was made first. I did not commit to the posterior incision until dissection was completed and I could assess the appropriate location for the posterior incision to prevent excessive tension. Cautery and Thunderbeat was used to separate the skin from subcutaneous tissues. Careful attention was paid to make sure that the plain of excision was superficial as close to the skin as possible and superior to the fascia. The right upper arm skin was 38 cm x 6 cm and the left 40 cm x 5 cm. Skin was closed in two layers using interrupted 3.0 Monocryl sutures for the dermis and 4.0 subcuticular Monocryl suture for the skin. The patient was extubated and was transferred in a stable condition at the recovery room. I was present and performed all steps of the procedure. There were no residents available to assist. Mr. Boris Cardona PA-C and Ms. Sol Lentz PA-C were the first and second assistant plant controller respectively. Fernando Og MD, PhD, FACS Surgeon: Sumeet Og MD Anesthesia: GETA and local Was an Salvage Inspector used for this Procedure?: No Salvage Inspector: Boris Cardona Estimated blood loss (mL): 10 IV fluids (mL): 2,500 Urine output (mL): 550 Pathology: other (bilateral upper arm and thigh skin (4 specimens)) Condition: stable Disposition: PACU
--- NOTE | 2021-03-01 07:54 | PM.PNGS ---
Subjective Subjective Date of Service: 03/02/21 Interval history: Patient has mild incisional pain, but was able to use the incentive spirometer. She is tolerating phase 1 bariatric diet All dressings were taken down and replaced. All flaps were viable with minimal drainage. Physical Exam Vital Signs: Vital Signs: Last Vital Signs Temp 97.1 F 03/01/21 06:22 Pulse 66 03/01/21 06:22 Resp 16 03/01/21 06:22 BP 115/61 03/01/21 06:22 Pulse Ox 99 03/01/21 06:22 BMI result Body Mass Index 26.9 Extrem: Right upper extremity: full ROM and shoulder/upper arm (incision is viable with minimal drainage) Left upper extremity: shoulder/upper arm (incision is viable with minimal drainage) Right lower extremity: normal to inspection (no calf tenderness) and hip/thigh (incision is viable with minimal drainage) Left lower extremity: normal to inspection (no calf tenderness) and hip/thigh (incision is viable with minimal drainage) Objective Data Active Medications Lactated Ringer's (Lr) 1,000 mls @ 80 mls/hr IVCONT .[id number] ANNAMARIE Lactated Ringer's (Lr) 1,000 mls @ 100 mls/hr IVCONT .Q10H ANNAMARIE Last Admin: 03/01/21 06:33 Dose: 100 mls/hr Documented by: CARRI Labs CBC & Chem 7: 03/02/21 05:18 03/02/21 05:18 Labs: Laboratory Results - last 24 hr 03/01/21 06:10 COVID-19 (JON) Negative COVID-19 Clin Com See Note Procedures Date of Service Date of Service: 03/02/21 Progress Note: A&P Assessment and plan (1) Skin laxity: Status: Acute Assessment and Plan: s/p bilateral brachioplasty and thighplasty Doing well Check am labs. D/C Ankit and anthony. If OK, will discharge home?later today. (2) Cellulitis: Status: Acute Fall Risk Details Current Medications: Current Medications Lactated Ringer's (Lr) 1,000 mls @ 80 mls/hr IVCONT .[id number] ANNAMARIE Lactated Ringer's (Lr) 1,000 mls @ 100 mls/hr IVCONT .Q10H ANNAMARIE Last Admin: 03/01/21 06:33 Dose: 100 mls/hr Documented by: Time Spent With Patient Time: Total time spent is greater than 50% in coordination of care (as documented) at patient's floor/unit and/or counseling patient: Time with patient: less than 15 minutes Quality Stroke Does the patient have a stroke diagnosis?: No VTE Prior VTE?: No VTE Risk Level:: Surgical - moderate VTE Device Contraindication: N/A - Device Ordered VTE Drug Contraindication: Treatment Not Indicated
--- NOTE | 2021-03-01 16:19 | PM.DS ---
DS: Providers Provider Date of Service: 03/02/21 Primary care physician: Nasra Stone MD DS: Diagnosis Discharge Diagnosis (1) Skin laxity: Status: Acute (2) Cellulitis: Status: Acute DS: Summary Hospital Course Hospital Course: DISCHARGE SUMMARY ? ADMITTING DIAGNOSIS: excess skin of Bilateral upper and lower extremities, s/p LSG. ? DISCHARGE DIAGNOSIS: The same. ? PAST SURGICAL HISTORY: LSG, panniculectomy, Cesarian section x 3, appendectomy, cholecystectomy, hysterectomy. ? PROCEDURE: Bilateral brachioplasty and bilateral thighplasty. ? HISTORY OF PRESENT ILLNESS: The patient is a 55 year-old female with a BMI of 26.9 kg/m2 and associated co-morbidities as described previous. The patient had a laparoscopic sleeve gastrectomy on 07/09/18 and has lost a total of 91 lbs, or 36.9 % of her initial weight and her BMI reduced to 269 kg/m2 from 39.2 kg/m2. As a result of the massive weight loss she developed excess skin of bilateral arma and thighs recalcitrant to medical treatment. The patient was electively scheduled for bilateral brachioplasty and bilateral thighplasty. Risks and complications of the surgery were discussed with the patient in advance, particularly the possibility of , pulmonary embolism, skin necrosis, loss of umbilicus, flap necrosis, wound dehiscence, flap asymmetry, bleeding requiring transfusion. The patient understood all the risks and was in agreement with the surgical plan. ? ? ? On postoperative day #1 the patient was started on Phase 3 bariatric diet. The Pham was discontinued. She was allowed to ambulate and she had no dizziness. During the first day, the patient did fairly well,having some incisional pain, but able to ambulate adequately and to tolerate liquids well. All dressings were taken down and the all incisions were inspected. There was no evidence of infection or bleeding or significant discharge. All flaps were viable and there was no dehiscence. ? Since the patient is doing well, we decided that the patient was ready to be discharged. The patient was given instructions to follow-up with Dr Og next week and to call my office for any fever over 101, persistent abdominal pain, nausea, vomiting, and symptoms of DVT such as calf tenderness, or leg swelling, or pulmonary embolism such as chest pain or shortness of breath. The patient was also instructed to drink 40-60 ounces of liquids per day using the 1-ounce cups and start on 3 Pure protein shakes per day. The patient was given prescription for Tylenol for pain, Zofran prn for nausea and a 10-day course of Keflex twice a day. The patient was encouraged to ambulate and use the incentive spirometer. However it was strongly recommended to do so with assistance. The patient was allowed only to do sponge baths, and encouraged to use the recliner at home and not the bed. All of these instructions were given to the patient personally. All questions were answered and the patient understood all instructions. The instructions were given to the patient in print as well. Time Spent with Patient Time attestation: Total time spent providing and/or coordinating discharge services: Discharge coordination time: Less than 30 minutes Quality: Stroke Does the patient have a stroke diagnosis?: No Physical Exam Vital Signs: Vital Signs: Last Vital Signs Temp 97.1 F 03/01/21 06:22 Pulse 66 03/01/21 06:22 Resp 16 03/01/21 06:22 BP 115/61 03/01/21 06:22 Pulse Ox 99 03/01/21 06:22 BMI result Body Mass Index 26.9 DS: Data Data Completed and Pending Completed studies during hospitalization [Text1]: Procedures Excision of Abdomen Subcutaneous Tissue and Fascia, Open Approach (04/29/20) Transfer Abdomen Subcutaneous Tissue and Fascia, Open Approach (04/29/20) Pending studies at discharge: Pending at discharge 03/01/21 13:19 Surgical [PTH] Routine Labs on day of discharge: Laboratory Results - last 24 hr 03/01/21 06:10 COVID-19 (JON) Negative COVID-19 Clin Com See Note Discharge Plan Discharge Patient Disposition: Home Health Service Referrals: [facility] [Outside] - 1 Day (CORRECTION) Nasra Stone MD [Primary Care Provider] - 1 Week Discharge Medications: Continued estradiol 10 mcg tablet 1 tab vaginal 2XW RF: 0 Hold Instructions: Discuss with Dr Anna when you can restart simvastatin 10 mg tablet 10 mg PO BEDTIME RF: 0 levothyroxine 75 mcg tablet 75 mcg PO DAILY RF: 0 cephalexin 500 mg capsule 500 mg PO Q12H Qty: 30 RF: 2 Held clopidogrel 75 mg tablet 75 mg PO DAILY RF: 0 Hold Instructions: until discussed with Dr Og Discharge Orders: Discharge Order (Routine); Ordered 03/02/21 Ordered By: Sumeet Og Activity Restrictions/Additional Instructions: 1) Start Keflex antibiotic 2) No showers. Only sponge baths 3) Avoid any tension on the arms and legs and always have help getting up. 4) Take 1 tab of Colace and one tablespoon of Metamucil daily 5) Diet: 5 Celebrate protein shakes (1 scoop each in 8oz almond milk), or 4 shakes and one bar, or 4 shakes and one meal (4 forks meat and 4 forks salad) 6) Change dressings daily and send pictures to Dr. Og. Replace loose steri-strips and xeroform gauze along the incisions and umbilicus. 7) Supplies needed: ABD pads, 4x4 dressings, xeroform gauze, 1/2'' steri-strips, paper tape. You will need to use several of the above supplies on a daily basis.
[2021-03-01 17:08] LABS: Hematocrit 40.5 % (37.0-47.0); Hemoglobin 12.9 g/dl (12.0-16.0)
[2021-03-01] MEDS: ceFAZolin Sodium/Dextrose,Iso 2 GM/50 ML PIGGYBACK IV (19:50)
[2021-03-01] MEDS: ondansetron HCL 4 MG/2 ML VIAL IVPUSH (20:25)
[2021-03-01] MEDS: 0.9 % Sodium Chloride Flush 3 ML SYRINGE IVFLUSH (20:26)
[2021-03-02] VITALS: BP 105/55; PULSE 57; RESP 17; TEMP 36.6; O2SAT 100
[2021-03-02] MEDS: Lactated Ringers 1,000 ML 100 ML IVCONT (02:48)
[2021-03-02] MEDS: ceFAZolin Sodium/Dextrose,Iso 2 GM/50 ML PIGGYBACK IV (03:23)
[2021-03-02 04:00] VITALS: BP 92/48; PULSE 63; RESP 17; TEMP 36.2; O2SAT 100
[2021-03-02] MEDS: Levothyroxine Sodium 75 MCG TABLET PO (05:43)
[2021-03-02] MEDS: ondansetron HCL 4 MG/2 ML VIAL IVPUSH (05:43)
[2021-03-02 05:52] LABS: MANUAL DIFF FLAG NO
[2021-03-02 06:04] LABS: Basophils Percent Auto 0.2 % (0-2); Hematocrit 36.6 % (37.0-47.0); Hemoglobin 11.3 g/dl (12.0-16.0); Imm Gran Abs Auto 0.06 X10*3/uL (0.00-0.03); Imm Gran Pct Auto 0.5 % (0.0-0.4); Lymphocytes Absolute Auto 1.8 X10*3/uL (1.2-4.9); Mean Corpuscular HGB Conc 30.9 g/dl (31.0-35.0); Mean Corpuscular Hemoglobin 28.4 pg (27.0-33.0); Mean Platelet Volume 11.2 fL (9.4-12.3); Monocytes Absolute Auto 1.1 X10*3/uL (0.1-1.2); Monocytes Percent Auto 9.3 % (2-11); Neutrophils Absolute Auto 8.9 x10*3/uL (2.0-8.3); Platelet Count 191 X10*3/uL (160-400); Red Blood Count 3.98 X10*6/uL (4.20-5.50); Red Cell Distribution Width 12.9 % (11.0-16.0); White Blood Count 11.9 X10*3/uL (4.8-10.8)
[2021-03-02 06:14] LABS: Anion Gap 12 (12-20); Blood Urea Nitrogen 9 mg/dL (9-16); Calcium 8.6 mg/dL (8.4-10.2); Carbon Dioxide 25 mmol/L (22-29); Chloride 108 mmol/L (96-108); Creatinine Clr Calc Pharmacy 99.8; Estimated Glomerular Filt Rate > 60; Glucose Random 98 mg/dL (60-115); Potassium 4.3 mmol/L (3.3-5.1); Sodium 141 mmol/L (135-145)
--- NOTE | 2021-03-02 07:06 | PC.NURSE ---
Reinforced pt's dressing on right underarm around 0300.
[2021-03-02 08:00] VITALS: BP 145/57; PULSE 71; RESP 16; TEMP 36.4; O2SAT 99
[2021-03-02 09:00] VITALS: O2SAT 100
--- NOTE | 2021-03-02 09:05 | W.MHC.F2F ---
Service Date Service Date: 03/02/21 Encounter Date of encounter: 03/02/21 Reasons for Services Reason for mcc: wound care (incisional dressing care) and postoperative assessment and/or care Homebound: Leaving the home is medically contraindicated at this time without the asist of a device and/or another person due th the listed conditions above and below. Certification: Based on the above findings, I certify that this patient is confined to the home and needs intermittent mcc care, physical therapy and/or speech therapy, or continues to need occupational therapy. The patient is under my care, and I have initiated the establishment of the plan of care. The patient will be followed by a physician who will periodically review the plan of care.
--- NOTE | 2021-03-02 09:10 | MHC.CM.PN ---
EMR REVIEWED, PT ADMITTED S/P B BRACHIOPLASTY AND B THIGHPLASTY, PT IS A&OX4, REPORTS SHE LIVES W/ AND DTR, PT IS INDEPENDENT W/ALL CARE, NO DME AND NO HOME SERVICES, PT REPORTS SHE WOULD LIKE TO USE THE SAME VNA SHE HAD IN [place], PER RECORDS PT HAD [facility] CARE NETWORK [facility] HOSPICE FROM [facility] AND REFERRAL HAS BEEN SENT VIA [email or web address], CM AWAITING RESPONSE AT TIME OF THIS NOTE. PT VERIFIES PCP SUJATHA WADE AND BELIEVES SHE DOES HAVE A HCP WHICH WOULD BE HER [facility] CATAL[facility] [phone], COPY REQUESTED. D/C PLAN: HOME W/VNA CARE NETWORK, FAMILY TO TRANSPORT.
--- NOTE | 2021-03-02 15:18 | MHC.CM.PN ---
CM RECEIVED MESSAGE THAT PT'S VNA IS NO LONGER COVERING [facility], CM CONTACTED OT AT 3:15PM AT NUMBER LISTED IN EXPANSE TO LET HER KNOW, BLANKET REFERRAL SENT, SEVERAL DO NOT COVER [facility] OR ARE CONTRACTED W/PT'S INSURANCE, CM WILL CONTACT PT ONCES VNA IS SECURED.
--- NOTE | 2021-03-02 15:49 | HO.POSTANES ---
Post Anesthesia Evaluation Post Anesthesia Evaluation Vital Signs: Vital Signs Temp Pulse Resp BP Pulse Ox 03/02/21 09:00 100 03/02/21 08:00 97.5 F 71 16 145/57 H 99 03/02/21 04:00 97.2 F 63 17 92/48 L 100 Anesthesia: General Endotracheal-GETA Mental Status: Awake Pain Control: Satisfactory Nausea/Vomiting: None Hydration: Adequate Anesthesia-Related Issues: No Anes. Related Issues
--- NOTE | 2021-03-03 13:24 | MHC.CM.PN ---
MICHEAL HAS RECEIVED RESPONSES FROM 16 VNA'S THAT COULD NOT TAKE PT D/T NO LONGER SERVICING [facility], NO TAKING PT'S INSURANCE OR BEING AT [facility], ON 03/02 THIS CM CALLED 8 ADDITIONAL VNA'S THAT COULD NOT ACCEPT PT D/T INSURANCE AND/OR NOT SERVICING [facility], MICHEAL SPOKE W/BARIATRIC PA WHO SUGGESTED THIS CM SPEAK W/SHRUTHI PORTRE IN OFFICE AND SHE SAID SHE WAS TRYING TO OBTAIN [facility] ( [employer]) HOWEVER COULD NOT SECURE PRIOR TO PROCEDURE,THIS MICEHAL AND SHRUTHI BOTH CALLED [facility] AND THEY REPORTED THEY COULD NOT TAKE PT D/T BEING AT [facility], SHRUTHI REPORTED SHE WOULD REACH OUT TO PROVIDERS AND FOLLOW-UP W/PT.
== END 2021-03-02 10:21 | disposition home health service (06) ==
LOC: HO.SSS 16:19 → HO.S3 16:32
PROVIDERS: Physician Assistant Surgical; PCP Internal Medicine; Visit Provider Surgery
PROC: (CPT 15836; principal; 2021-03-01 07:30)
PROC: (CPT 15836; 2021-03-01 07:30)
DX: L98.7 Excessive and redundant skin and subcutaneous tissue (principal); Z98.84 Bariatric surgery status; G89.18 Other acute postprocedural pain; Z90.3 Acquired absence of stomach [part of]; L57.4 Cutis laxa senilis; L03.90 Cellulitis, unspecified; L81.4 Other melanin hyperpigmentation; D22.9 Melanocytic nevi, unspecified; Z90.49 Acquired absence of other specified parts of digestive tract; Z79.899 Other long term (current) drug therapy; Z20.822 Contact with and (suspected) exposure to COVID-19
CPT/HCPCS: 15836; 15832; 36415; 80048; 85014; 85018; 85025; 86850; 86900; 86901; 87635; 88304; 88305; 99024; C1758; J0131; J0690; J1100; J1170; J2250; J2370; J2405; J3010

== ENCOUNTER → 2021-03-09 09:52 | Outpatient (BNVA) | payer OTHER, SELFPAY | PROVIDERS: PCP Internal Medicine; Visit Provider Surgery ==

== ENCOUNTER → 2021-04-08 09:22 | Outpatient (BNVA) | payer OTHER, SELFPAY | PROVIDERS: PCP Internal Medicine; Visit Provider Physician Assistant Surgical ==

== ENCOUNTER 2021-08-08 12:37 | Outpatient (REF) | payer OTHER, SELFPAY ==
[2021-08-08 15:15] LABS: Anion Gap 15 (12-20); Blood Urea Nitrogen 19 mg/dL (9-16); Calcium 10.1 mg/dL (8.4-10.2); Carbon Dioxide 28 mmol/L (22-29); Chloride 101 mmol/L (96-108); Estimated Glomerular Filt Rate > 60; Glucose Random 87 mg/dL (60-115); Iron 69 mcg/dL (30-160); Percent Iron Saturation 21 % (15-50); Potassium 4.8 mmol/L (3.3-5.1); Sodium 139 mmol/L (135-145); Total Iron Binding Capacity 322 mcg/dL (228-428); Unsaturated Iron Binding 253 ug/dL
[2021-08-08 15:38] LABS: TSH reflex Free T4 0.95 uIU/mL (0.32-4.0); Vitamin D 25-OH Total 45.4 ng/mL (>30)
[2021-08-08 15:45] LABS: Folate 16.8 ng/mL (> or = 4.0); Vitamin B12 501 pg/mL (200-900)
[2021-08-09 18:01] LABS: Calcium (PTHI) 9.9 mg/dL (8.6-10.4); PTHI 49 pg/mL (16-77)
[2021-08-11 14:25] LABS: Zinc 66 mcg/dL (60-130)
[2021-08-13 00:12] LABS: Vitamin A 42 mcg/dL (38-98)
[2021-08-13 13:26] LABS: Vitamin B1 22 nmol/L (8-30)
== END 2021-08-08 12:38 | disposition home or self-care (01) ==
LOC: HO.LAB 12:37
PROVIDERS: PCP Internal Medicine; Visit Provider Physician Assistant Surgical
DX: E66.3 Overweight (principal); Z68.27 Body mass index [BMI] 27.0-27.9, adult; Z71.3 Dietary counseling and surveillance
CPT/HCPCS: 36415; 80048; 82306; 82607; 82746; 83540; 83970; 84425; 84443; 84590; 84630